=== PATIENT | male | born 1995 | race African-American/Black ===

== ENCOUNTER 2018-05-01 16:39 | Emergency (ER) | payer SELFPAY ==
[~2018-05-01] VITALS: Ht 188 cm; Wt 67.0 kg
[2018-05-01 18:00] LABS: BASOPHILS # (AUTO) 0.03 x10^3/uL (0-0.1); BASOPHILS % (AUTO) 0 % (0-1); EOSINOPHILS # (AUTO) 0.03 x10^3/uL (0-0.4); EOSINOPHILS % (AUTO) 0 % (1-7); LYMPHOCYTES # (AUTO) 2.31 x10^3/uL (1-3.4); LYMPHOCYTES % (AUTO) 27 % (22-44); MD NO; MEAN CORPUSCULAR HGB CONC 33.2 g/dL (33.2-36.2); MEAN CORPUSCULAR VOLUME 93.6 fL (81-97); MEAN PLATELET VOLUME 7.7 fL (7.4-10.4); MONOCYTES # (AUTO) 0.59 x10^3/uL (0.2-0.8); MONOCYTES % (AUTO) 7 % (2-9); NEUTROPHILS # (AUTO) 5.68 x10^3/uL (1.8-6.8); NEUTROPHILS % (AUTO) 66 % (42-75); PLATELET COUNT 243 x10^3/uL (130-400); RED BLOOD COUNT 4.84 x10^6/uL (4.38-5.82); RED CELL DISTRIBUTION WIDTH 13.3 % (9.4-14.8)
[2018-05-01 18:07] LABS: ALANINE AMINOTRANSFERASE 19 U/L (12-78); ALBUMIN 4.4 g/dL (3.4-5.0); ANION GAP 5 mmol/L (5-15); CALCIUM 9.2 mg/dL (8.5-10.1); CHLORIDE 107 mmol/L (98-107); CREATININE 1.09 mg/dL (0.7-1.3)
[2018-05-01 18:09] LABS: ALKALINE PHOSPHATASE 81 U/L (45-117); BILIRUBIN,TOTAL 0.8 mg/dL (0.2-1.0); TOTAL PROTEIN 7.9 g/dL (6.4-8.2)
[2018-05-01 18:25] LABS: MICROSCOPIC NOT IND
[2018-05-01 18:27] LABS: CULTURE INDICATED? NO
[2018-05-01] MEDS ORDERED: OMNIPAQUE 350 MG/ML, 100ML BOTTLE ONE ×2 (19:07→22:30)
[2018-05-02 00:09] VITALS: BP 131/78
== END 2018-05-02 00:15 | disposition home or self-care (01) ==
LOC: ED 23:59
DX: R10.31 Right lower quadrant pain (principal); R63.0 Anorexia
CPT/HCPCS: 36415; 74021; 74177; 80053; 81003; 85025; 99285; Q9967